=== PATIENT | male | born 1960 | race Caucasian/White ===

== ENCOUNTER → 2018-06-01 | Outpatient (CLI) | payer BC ==
--- NOTE | 2018-06-02 08:38 | Diagnostic Imaging Report ---
History: Low back pain Comparison studies: None Technique: Axial images were obtained from T12-S1. Coronal and sagittal images reconstructed from the axial data. Intravenous contrast: None Findings: Number of non-rib bearing vertebral bodies: 5 Alignment: Normal lordosis. No scoliosis. Soft tissues: No abnormalities. Minimal atherosclerotic changes of the abdominal aorta Paraspinal muscles: Unremarkable. Vertebrae: No fractures, infection or neoplasm. Degenerative changes: T12-L1: Disc degeneration with decreased intervertebral space and endplate Schmorl nodes. Patent canal and foramina. L1-L2: No abnormalities. L2-L3: No abnormalities. L3-L4: Mild diffuse disc bulge with patent canal and foramina L4-L5: Diffuse disc bulge, moderate right and mild left facet hypertrophy and ligamentum flavum thickening results in mild canal stenosis and mild bilateral foraminal narrowing L5-S1: Disc degeneration with decreased intervertebral space, endplate sclerosis and minimal vacuum disc phenomenon. Right subarticular disc protrusion narrows the right subarticular recesses contacting the descending S1 root. Mild facet hypertrophy results in bilateral foraminal narrowing Sacroiliac joints: Mild degenerative changes, with marginal osteophytes and sclerosis. IMPRESSION: 1. Disc degeneration at T12-L1 and L5-S1. 2. Right subarticular disc protrusion at L5-S1 contacting the descending S1 nerve root. 3. Mild degenerative canal stenosis and mild bilateral foraminal narrowing at L4-L5. Other mild degenerative changes as described above Signed by: DR Dread Tran M.D. on 06/02/2018 8:34 AM
== END ==
LOC: CT 15:22
PROVIDERS: ATTEND Internal Medicine Interventional Cardiology
DX: M54.5 Low back pain (principal)
CPT/HCPCS: 72131

== ENCOUNTER → 2020-04-05 | Outpatient (CLI) | payer BC ==
[~2020-04-05] MED LIST: IOPAMIDOL 370 MG/ML 200 ML INFUS..BTL INJ ONE; SODIUM CHLORIDE 0.9% 50ML 50 ML ONE
--- NOTE | 2020-04-05 14:08 | Diagnostic Imaging Report ---
EXAM: CT Chest WITH intravenous contrast 04/05/2020 8:10 AM INDICATION: Chronic cough COMPARISON: None TECHNIQUE: Chest was scanned utilizing a multidetector helical scanner from the lung apex through the level of the adrenal glands after administration of IV contrast. Coronal and sagittal reformations were obtained. Routine protocol was performed. IV CONTRAST: 100mL Isovue 370 RADIATION DOSE: Total DLP: 549 mGy*cm. Dose modulation, iterative reconstruction, and/or weight based adjustment of the mA/kV was utilized to reduce the radiation dose to as low as reasonably achievable. COMPLICATIONS: None FINDINGS: LINES/ TUBES: Left chest loop recorder device. LUNGS AND AIRWAYS: Increased AP diameter of the chest. The central airways are patent. Mild biapical pleural parenchymal thickening/scarring. No focal pneumonia or pulmonary edema. Focal mucus plugging of subsegmental lingular bronchi, possibly related to aspiration. No suspicious pulmonary nodules. PLEURA: The pleural spaces are clear. HEART AND MEDIASTINUM: The thyroid gland is normal. No mediastinal, hilar or axillary lymphadenopathy. The heart is normal in size.. There is no pericardial effusion. No central pulmonary embolism. UPPER ABDOMEN: No acute findings. BONES: No acute osseous injury. Exaggerated kyphosis of the midthoracic spine. Mild multilevel degenerative changes. SOFT TISSUES: Unremarkable. IMPRESSION: No focal pneumonia or pulmonary edema. Focal mucus plugging of subsegmental lingular bronchi may be related to aspiration. Signed by: Lizandro Meléndez MD on 04/05/2020 2:04 PM
== END ==
LOC: CT 07:41
PROVIDERS: ATTEND Family Medicine
DX: R05 Cough (principal)
CPT/HCPCS: 71260; Q9967

== ENCOUNTER → 2021-03-20 | Day surgery (SDC) | payer BC ==
[2021-03-15 13:21] LABS: BASOPHILS % 0.3 % (0.0-1.0); EOSINOPHILS # (AUTO) 0.1 (0.0-0.4); EOSINOPHILS % 1.2 % (0.0-6.0); HEMATOCRIT 37.8 % (38.2-49.6); LYMPHOCYTES # (AUTO) 1.7 (1.0-3.2); LYMPHOCYTES % 25.1 % (18.0-39.1); MEAN CORPUSCULAR HEMOGLOBIN 32.3 pg (28-32); MEAN CORPUSCULAR HGB CONC 34.4 g/dL (31-35); MEAN CORPUSCULAR VOLUME 93.8 fL (81-99); MONOCYTES # (AUTO) 0.4 (0.2-0.8); MONOCYTES % 5.5 % (4.4-11.3); NEUTROPHILS # (AUTO) 4.5 (2.1-6.9); NEUTROPHILS % 67.6 % (38.7-80.0); PLATELET COUNT 221 x10e3/uL (140-360); RED BLOOD COUNT 4.03 x10e6/uL (4.3-5.7); RED CELL DISTRIBUTION WIDTH 12.3 % (11.7-14.4)
[2021-03-15 13:40] LABS: ALANINE AMINOTRANSFERASE 31 IU/L (0-55); ALBUMIN/GLOBULIN RATIO 1.3 (0.8-2.0); ALKALINE PHOSPHATASE 58 IU/L (40-150); BLOOD UREA NITROGEN 15 mg/dL (7-26); BUN/CREATININE RATIO 15 (6-25); CALCIUM 8.9 mg/dL (8.4-10.2); CARBON DIOXIDE 25 mmol/L (22-29); CHLORIDE 106 mmol/L (98-107); CREATININE, SERUM 1.01 mg/dL (0.72-1.25); EST GLOMERULAR FILTRATION RATE > 60 ML/MIN (60-); GLUCOSE 155 mg/dL (74-118); SODIUM 141 mmol/L (136-145)
[2021-03-20] VITALS (7 sets, daily range): BP systolic 138–176; BP diastolic 62–99
[~2021-03-20] VITALS: Ht 175.3 cm; Wt 79.4 kg
[~2021-03-20] MED LIST changes: +ALLEGRA ALLERGY60 MG PO; +BENADRYL25 M1 PO; +BENZOCAINE 20% SPR 60 ML CAN ONE; +BIOTIN10000 MCG PO; -IOPAMIDOL 370 MG/ML 200 ML INFUS..BTL INJ ONE; +LEVALBUTEROL TA15 GM INH; +LIDOCAINE HCL 2% LOCAL INJ 5 ML SDV VIAL INJ ONE; +METOPROLOL TART25 MG PO; +MULTI-VITAMIN1 EACH PO; +OCUVITE LUTEIN1 EACH PO; +PROPOFOL IV EMULSION 10 MG/ML 20 ML VIAL ONE; +SODIUM CHLORIDE 0.9% 1000ML 1,000 ML ONE; -SODIUM CHLORIDE 0.9% 50ML 50 ML ONE; +VITAMIN D3125 MCG PO; +XARELTO10 MG PO
== END | disposition home or self-care (01) ==
LOC: CATH LAB 10:14
PROVIDERS: ATTEND Internal Medicine Interventional Cardiology
DX: I48.91 Unspecified atrial fibrillation (principal); J45.909 Unspecified asthma, uncomplicated; Z01.812 Encounter for preprocedural laboratory examination; Z20.822 Contact with and (suspected) exposure to COVID-19; Z79.02 Long term (current) use of antithrombotics/antiplatelets
CPT/HCPCS: 36415; 80053; 85025; 93307; 93312; 93320; 93325; J7030; U0002; J2001